=== PATIENT | female | born 1980 | race Caucasian/White ===

== ENCOUNTER 2017-10-26 04:00 | Emergency (ER) | payer MEDICAID ==
[~2017-10-26] VITALS: Ht 175.3 cm; Wt 64.0 kg
[2017-10-26] MEDS ORDERED: KETOROLAC 60MG/2ML VIAL IM STA (04:36)
[2017-10-26 09:07] VITALS: BP 133/86
== END 2017-10-26 09:14 | disposition home or self-care (01) ==
LOC: ER 04:00
DX: S92.414A Nondisplaced fracture of proximal phalanx of right great toe, initial encounter for closed fracture (principal); S93.491A Sprain of other ligament of right ankle, initial encounter; J45.909 Unspecified asthma, uncomplicated; F15.10 Other stimulant abuse, uncomplicated; W17.89XA Other fall from one level to another, initial encounter; Y93.39 Activity, other involving climbing, rappelling and jumping off; Y92.89 Other specified places as the place of occurrence of the external cause; Y99.8 Other external cause status; Z98.890 Other specified postprocedural states; Z90.49 Acquired absence of other specified parts of digestive tract; F17.200 Nicotine dependence, unspecified, uncomplicated
CPT/HCPCS: 73600; 73620; 81025; 96372; 99284; J1885; Z7610

== ENCOUNTER 2017-11-20 17:17 | Emergency (ER) | payer MEDICAID ==
[~2017-11-20] VITALS: Ht 162.6 cm; Wt 64.0 kg
[2017-11-20] MEDS ORDERED: LIDOCAINE 1%/EPI 1:100,000 10 ML VIAL IJ ONE (17:45)
[2017-11-20 19:26] LABS: BASOPHILS % 1.2 % (0.0-2.0); EOSINOPHILS % 3.4 % (0.0-5.0); HEMATOCRIT. 34.9 % (36.0-48.0); LYMPHOCYTES % 21.6 % (20.0-50.0); MEAN CORPUSCULAR VOLUME 87.5 fL (81.0-99.0); MEAN PLATELET VOLUME 7.3 fl (7.4-10.4); MONOCYTES % 8.5 % (2.0-8.0); NEUTROPHILS % 65.3 % (40.0-76.0); PLATELET 174 x1000/uL (130-400); RED BLOOD CELL COUNT 3.99 mill/uL (4.2-5.4); RED CELL DISTRIBUTION WIDTH 13.7 % (11.6-14.6)
[2017-11-20 19:27] LABS: CHLORIDE 108 mEq/L (98-107)
[2017-11-20 19:29] LABS: PROTHROMBIN TIME 9.9 sec (9.1-11.1)
[2017-11-20 20:06] VITALS: BP 116/55
== END 2017-11-20 20:08 | disposition home or self-care (01) ==
LOC: ER 17:33
DX: N93.8 Other specified abnormal uterine and vaginal bleeding (principal); L02.411 Cutaneous abscess of right axilla; F15.10 Other stimulant abuse, uncomplicated
CPT/HCPCS: 10060; 36415; 76830; 76856; 80053; 81025; 85025; 85610; 86850; 86900; 86901; 99291; J3490; Z7610

== ENCOUNTER 2018-03-11 19:37 | Emergency (ER) | payer MEDICAID ==
[~2018-03-11] VITALS: Ht 165.1 cm; Wt 73.0 kg
[2018-03-11] MEDS ORDERED: TETANUS, DIPHTHERIA, PERTUSSIS VAC/PF 0.5ML (>7YR OLD) IM ONE (21:30)
[2018-03-11] MEDS ORDERED: LIDOCAINE HCL/PF 1% 10 MG/ML 5ML VIAL IJ ONE (21:30)
[2018-03-11] MEDS ORDERED: BACITRACIN ZINC OINT UDPKT TOP ONE (21:30)
[2018-03-11] MEDS ORDERED: IBUPROFEN 600MG TABLET PO ONE (22:30)
[2018-03-11 22:33] VITALS: BP 116/77
== END 2018-03-11 23:04 | disposition left against medical advice (07) ==
LOC: ER 19:37
DX: S61.411A Laceration without foreign body of right hand, initial encounter (principal); W26.0XXA Contact with knife, initial encounter; Y93.89 Activity, other specified; Y92.89 Other specified places as the place of occurrence of the external cause; Z23 Encounter for immunization
CPT/HCPCS: 73130; 81025; 90471; 90715; 99283; J3490